=== PATIENT | female | born 1985 | race Hispanic/Latino ===

== ENCOUNTER 2020-05-04 18:11 | Outpatient (CLI) | payer OTHER ==
[2020-05-04 21:20] LABS: Hematocrit 33.4 % (30.3-42.9); Hemoglobin 11.7 gm/dl (10.1-14.3); Mean Corpuscular HGB Conc 35 % (30-34); Mean Corpuscular Volume 88 fl (79-97); Platelet Count 180 K/mm3 (140-440)
[2020-05-04 21:25] LABS: Bacteria,Urine 1+ /HPF (Negative); Bilirubin,Urine NEG (Negative); Blood,Urine NEG (Negative); Color,Urine Straw (Yellow); Mucus,Urine FEW /HPF; Protein,Urine <15 mg/dL mg/dL (Negative); Urobilinogen,Urine < 2.0 mg/dL (<2.0)
[2020-05-04 21:43] LABS: Alanine Aminotransferase 8 units/L (7-56); Uric Acid 3.7 mg/dL (3.5-7.6)
[2020-05-04 21:51] VITALS: BP 132/89
== END 2020-05-04 20:15 | disposition home or self-care (01) ==
LOC: TRG 18:11 → APU 18:11 → TRG 20:15
PROVIDERS: ATTEND Obstetrics & Gynecology
DX: O47.1 False labor at or after 37 completed weeks of gestation (principal); Z3A.37 37 weeks gestation of pregnancy
CPT/HCPCS: 36415; 59025; 81001; 82565; 83615; 84450; 84460; 84550; 85027

== ENCOUNTER 2020-05-27 10:19 | Outpatient (CLI) | payer OTHER ==
[2020-05-27 11:29] VITALS: BP 109/72
== END 2020-05-27 12:00 | disposition home or self-care (01) ==
LOC: TRG 10:19 → APU 10:20 → TRG 12:00
PROVIDERS: ATTEND Obstetrics & Gynecology
DX: O26.893 Other specified pregnancy related conditions, third trimester (principal); R42 Dizziness and giddiness; Z3A.41 41 weeks gestation of pregnancy
CPT/HCPCS: 59025

== ENCOUNTER 2020-05-29 11:49 | Inpatient (IN) | payer OTHER ==
[2020-05-29] MEDS ORDERED: CARBOPROST TROMETHAMINE 250 MCG/1 ML INJ IM PRN (11:57)
[2020-05-29] MEDS ORDERED: LIDOCAINE (2%) 20 MG/1 ML VIAL 20 ML MDV INFILTRATI NR (11:57)
[2020-05-29] MEDS ORDERED: miSOPROStol 200 MCG TAB PR PRN (12:00)
[2020-05-29] MEDS ORDERED: OXYTOCIN 10 UNIT/1 ML INJ IM PRN (12:00)
[2020-05-29] MEDS ORDERED: TERBUTALINE 1 MG/1 ML INJ SUB-Q PRN (12:00)
[2020-05-29] MEDS ORDERED: ONDANSETRON 4 MG/2 ML INJ IV PRN (12:00)
[2020-05-29] MEDS ORDERED: OXYTOCIN DRIP 30 UNITS/500 ML BAG IV SCH (12:00)
[2020-05-29] MEDS ORDERED: OXYTOCIN 20 UNIT/1000ML DRIP 20 UNITS/1,000 ML BAG IV SCH (12:00)
--- NOTE | 2020-05-29 12:23 | History and Physical Report ---
History of Present Illness Date of examination: 05/29/20 (Sent from OB office Nonreactive NST; 40w5d IOL) Date of admission: 05/29/20 11:49 History of present illness: EDC Confirmation: 05/24/2020 Gestational Age: 8 5/7 weeks Past History : 3 Term Births: 2 Premature Births: 0 Living Children: 2 Para: 2 Mult. Births: 0 Prev : 0 Aborta: 0 Elect. Ab: 0 Spont. Ab: 0 Ectopics: 0 # 1 Delivery date: 2008 labor: no Delivery type: Anesthesia type: epidural Delivery location: [place] Infant Sex: Male weight: 6-7 # 2 Delivery date: 2014 labor: no Delivery type: Anesthesia type: epidural Delivery location: [place] Sex: Male weight: 7-6 Past Medical History: Reviewed history and no changes required: Negative Past Medical History Past Surgical History: negative Risk Factors: Smoked Tobacco Use: Never smoker Smokeless Tobacco Use: Never Passive smoke exposure: no Drug use: no HIV high-risk behavior: low risk Caffeine use: 2 drinks per day Alcohol use: no Exercise: no Seatbelt use: preg-day camp counselor % Family History Risk Factors: Family History of IN in females < 65 years old: no Family History of IN in males < 55 years old: no Dietary Counseling: pn yes PAP Smear History: Date of Last PAP Smear: 09/12/2014 Results: normal per pt Past Medical History Anesthesia Complications: negative Anemia: negative Autoimmune Disorder: negative Bleeding Disorder: negative Blood Transfusions: negative Breast Disease: negative Diabetes: negative Heart Disease: negative Hypertension: negative Hepatitis/Liver Disease: negative Kidney Disease/UTI: negative Neurologic/Epilepsy/Migraines: negative Phlebitis/Varicosities: negative Psychiatric: negative Pulmonary Disease/Asthma: negative Thyroid Disease: negative Hospitalizations: negative Surgery (Non-cotton sampler): negative Abnormal PAP: negative LESLYE Exposure: negative Infertility: negative Uterine Anomaly: negative Uterine Surgery (not C/S): negative Other Gynecologic Problems: negative Infection History Hx of STD: none HIV Risk Eval: low risk Hepatitis B Risk Eval: low risk Personal hx. of genital herpes: no Partner hx. of genital herpes: no Rash, Viral, or Febrile illness since last LMP? no Varicella/Chicken Pox Status: Previous Disease TB Risk: no Genetic History Congenital Heart Defect: Mom: no Dad: no Mandy Disease: Mom: no Dad: no Thalassemia Mom: no Dad: no Neural Tube Defect Mom: no Dad: no Down's Syndrome Mom: no Dad: no Roland-Sachs Mom: no Dad: no Sickle Cell Disease/Trait Mom: no Dad: no Hemophilia Mom: no Dad: no Muscular Dystrophy Mom: no Dad: no Cystic Fibrosis Mom: no Dad: no Kathrin Chorea Mom: no Dad: no Mental Retardation Mom: no Dad: yes Comments: Austisim Fragile X Mom: no Dad: no Other Genetic/Chromosomal Disorder Mom: no Dad: no Child w/other defect Mom: no Dad: no Enviromental Exposures Xray Exposure: no Medication, drug, or alcohol use since LMP: no Chemical/Other Exposure: no Exposure to Cat Liter: yes Hx of Parvovirus (Fifth Disease): no Occupational Exposure to Children: none Active Medications: None Current Allergies: No known allergies Past History - Obstetrical History Expected Date of Delivery: 05/24/20 Actual Gestation: 40 Week(s) 5 Day(s) : 3 Para: 2 Hx # Term Pregnancies: 2 Number of Pregnancies: 0 Spontaneous Abortions: 0 Induced : 0 Number of Living Children: 2 Medications and Allergies Allergies Allergy/AdvReac Type Severity Reaction Status Date / Time No Known Allergies Allergy Verified 04/27/20 05:13 Home Medications Medication Instructions Recorded Confirmed Last Taken Type No Known Home Medications [No 05/29/20 05/29/20 Unknown History Reported Home Medications] Active Meds: Active Medications Acetaminophen (Tylenol) 650 mg PO Q4H PRN PRN Reason: Pain, Mild (1-3) Carboprost Tromethamine (Hemabate) 250 mcg IM ONCE PRN PRN Reason: Uterine Bleeding Stop: 05/29/20 23:00 Ephedrine Sulfate (Ephedrine Sulfate) 10 mg IV Q2M PRN PRN Reason: Hypotension Fentanyl (Sublimaze) 100 mcg IV Q2H PRN PRN Reason: Pain,Severe (7-10) LABOR PAIN Oxytocin/Sodium Chloride (Pitocin/Ns 30 Unit/500ml) 30 units in 500 mls @ 4 mls/hr IV TITR ANDERS; Protocol Lactated Ringer's (Lactated Ringers) 1,000 mls @ 125 mls/hr IV DIRECT ANDERS Oxytocin/Sodium Chloride (Pitocin/Ns 20 Unit/1000ml Drip) 20 units in 1,000 mls @ 125 mls/hr IV DIRECT ANDERS Lidocaine (Xylocaine 2%) 20 ml INFILTRATI ONCE NR Stop: 05/29/20 16:00 Methylergonovine Maleate (Methergine) 0.2 mg IM ONCE PRN PRN Reason: Uterine Bleeding Stop: 05/29/20 23:00 Mineral Oil (Mineral Oil) 30 ml PO QHS PRN PRN Reason: Constipation Misoprostol (Cytotec) 800 mcg [place] ONCE PRN PRN Reason: Uterine Bleeding Stop: 05/29/20 23:00 Ondansetron HCl (Zofran) 4 mg IV Q8H PRN PRN Reason: Nausea And Vomiting Oxytocin (Pitocin) 10 unit IM ONCE PRN PRN Reason: Uterine Bleeding Stop: 05/29/20 23:00 Terbutaline Sulfate (Brethine) 0.25 mg SUB-Q ONCE PRN PRN Reason: Hyperstimulation/Hypertonicity Stop: 05/29/20 23:00 - Physical Exam Breasts: Positive: deferred Cardiovascular: Regular rate, Normal S1, Normal S2 Lungs: Positive: Normal air movement Abdomen: Positive: normal appearance, soft, normal bowel sounds. Negative: distention, tenderness Genitourinary (Female): Positive: normal external genitalia Vulva: both: normal Vagina: Positive: normal moisture. Negative: discharge Cervix: Negative: lesion, discharge Uterus: Positive: normal size, normal contour Adnexa: both: normal Anus/Rectum: Positive: normal perianal skin, heme negative. Negative: rectal mass, hemorrhoids Extremities: Positive: edema Deep Tendon Reflex Grade: Normal +2 - Obstetrical FHR: category 1 Uterine Contraction Monitor Mode: External Cervical Dilatation: 1 (vertex) Cervical Effacement Percentage: 30 station: -4 Uterine Contraction Pattern: Irregular Uterine Tone Measurement Phase: Resting Uterine Contraction Intensity: Mild Results Result Diagrams: 05/29/20 12:39 All other labs normal. GBS NEGATIVE HBsAg Screen Negative Negative *1 RPR Non Reactive Non Reactive *2 Rubella Antibodies, IgG 1.15 index Immune >0.99 *3 Non-immune <0.90 Equivocal 0.90 - 0.99 Immune >0.99 ABO Grouping B *4 Rh Factor Positive *5 Please note: Prior records for this patient's ABO / Rh type are not available for additional verification. Antibody Screen Negative Negative *6 WBC 8.7 x10E3/uL 3.4-10.8 *7 RBC 4.56 x10E6/uL 3.77-5.28 *8 Hemoglobin 13.9 g/dL 11.1-15.9 *9 Hematocrit 43.0 % 34.0-46.6 *10 MCV 94 fL 79-97 *11 MCH 30.5 pg 26.6-33.0 *12 MCHC 32.3 g/dL 31.5-35.7 *13 RDW 13.4 % 11.7-15.4 *14 Platelets 225 x10E3/uL 150-450 *15 Neutrophils 71 % Not Estab. *16 Lymphs 19 % Not Estab. *17 Monocytes 5 % Not Estab. *18 Eos 4 % Not Estab. *19 Basos 0 % Not Estab. *20 ! Immature Cells <No Reported Value> *21 Neutrophils (Absolute) 6.2 x10E3/uL 1.4-7.0 *22 Lymphs (Absolute) 1.7 x10E3/uL 0.7-3.1 *23 Monocytes(Absolute) 0.5 x10E3/uL 0.1-0.9 *24 Eos (Absolute) 0.3 x10E3/uL 0.0-0.4 *25 Baso (Absolute) 0.0 x10E3/uL 0.0-0.2 *26 ! Immature Granulocytes 1 % Not Estab. *27 ! Immature Grans (Abs) 0.0 x10E3/uL 0.0-0.1 *28 ! NRBC <No Reported Value> *29 Hematology Comments: <No Reported Value> *30 Tests: (2) Parvovirus B19, Human, IgG/IgM (437273) ! Parvovirus B19, IgG [H] 6.7 index 0.0-0.8 *31 Negative <0.9 Equivocal 0.9 - 1.1 Positive >1.1 ! Parvovirus B19, IgM 0.5 index 0.0-0.8 *32 Negative <0.9 Equivocal 0.9 - 1.1 Positive >1.1 Tests: (3) HB Solu + Rflx Fra ([id number]) Hemoglobin (Hgb) Solubility Negative Negative *33 Tests: (4) HIV Ag/Ab with Reflex ([id number]) HIV Screen 4th Generation wRfx Non Reactive Non Reactive *34 Tests: (5) HCV Ab w/Rflx to Verification ([id number]) ! HCV Ab <0.1 s/co ratio 0.0-0.9 *35 Tests: (6) Comment: ([id number]) ! Comment: SPRCS *36 Non reactive HCV antibody screen is consistent with no HCV infection, unless recent infection is suspected or other evidence exists to indicate HCV infection. Assessment and Plan 34yo @ 40w5d with nonreactive NST in office. Sent for IOL All orders in EMR GBS Negative - Patient Problems (1) Non-reassuring status Onset Date: ~05/29/20 Current Visit: Yes Status: Acute Plan to address problem: Nonreactive NST in office @ 40w5d Sent for IOL. Close monitoring of baby.
[2020-05-29] MEDS ORDERED: METHYLERGONOVINE MALEATE 0.2 MG/ML VIAL IM PRN (12:30)
[2020-05-29] MEDS ORDERED: ACETAMINOPHEN 325 MG TAB PO PRN (13:00)
[2020-05-29] MEDS ORDERED: fentaNYL 100 MCG/2 ML INJ IV PRN (13:00)
[2020-05-29 13:15] LABS: Hematocrit 35.4 % (30.3-42.9); Hemoglobin 12.2 gm/dl (10.1-14.3); Mean Corpuscular HGB Conc 35 % (30-34); Mean Corpuscular Volume 88 fl (79-97); Platelet Count 185 K/mm3 (140-440); Red Blood Count 4.04 M/mm3 (3.65-5.03); Red Cell Distribution Width 13.5 % (13.2-15.2)
[2020-05-29] MEDS ORDERED: DINOPROSTONE 10 MG VAG SUPP VG ONE (14:57)
[2020-05-29] MEDS: LACTATED RINGERS 1,000 ML IV SCH (16:27)
[2020-05-29] MEDS: FAMOTIDINE 20 MG/2 ML INJ IV SCH (18:18)
[2020-05-29] MEDS: ZOLPIDEM 5 MG TAB PO PRN (21:21)
[2020-05-29] MEDS ORDERED: MINERAL OIL 30 ML ORAL LIQD PO PRN (22:00)
[2020-05-30] MEDS: LACTATED RINGERS 1,000 ML IV SCH ×2 (00:18→09:30)
--- NOTE | 2020-05-30 07:44 | Progress Note ---
Assessment and Plan A: 34 y.o. @ 40.6 wks, IOL d/t non reactive NST in office. Cervidil removed @ 0500. Cervical exam 1.4. Category 1 strip at this time. P: Allow AM care: breakfast, shower. Start Pitocin after AM care. Subjective - Subjective Date of service: 05/30/20 (Pt doing well. ) Principal diagnosis: Postdates 40.6 wks IUP, IOL d/t non reassuring heart rate on office NST Objective - Vital Signs Vital Signs: Vital Signs - 12hr 05/29/20 05/29/20 05/29/20 19:41 19:46 19:51 Temperature Pulse Rate 82 76 73 Respiratory Rate Blood Pressure Blood Pressure [Right] O2 Sat by Pulse 99 100 99 Oximetry 05/29/20 05/29/20 05/29/20 19:53 19:56 19:59 Temperature 987.7 F H Pulse Rate 74 77 73 Respiratory 18 Rate Blood Pressure 117/76 Blood Pressure 131/85 [Right] O2 Sat by Pulse 99 Oximetry 05/29/20 05/29/20 05/29/20 20:01 20:06 20:11 Temperature Pulse Rate 73 86 79 Respiratory Rate Blood Pressure Blood Pressure [Right] O2 Sat by Pulse 99 99 99 Oximetry 05/29/20 05/29/20 05/29/20 20:16 20:21 20:26 Temperature Pulse Rate 89 74 82 Respiratory Rate Blood Pressure Blood Pressure [Right] O2 Sat by Pulse 99 99 100 Oximetry 05/29/20 05/29/20 05/29/20 20:31 20:36 20:41 Temperature Pulse Rate 67 65 67 Respiratory Rate Blood Pressure Blood Pressure [Right] O2 Sat by Pulse 98 100 99 Oximetry 05/29/20 05/29/20 05/29/20 20:46 20:51 20:56 Temperature Pulse Rate 66 71 71 Respiratory Rate Blood Pressure Blood Pressure [Right] O2 Sat by Pulse 100 100 100 Oximetry 05/29/20 05/29/20 05/29/20 21:01 21:06 21:11 Temperature Pulse Rate 71 80 73 Respiratory Rate Blood Pressure Blood Pressure [Right] O2 Sat by Pulse 100 100 100 Oximetry 05/29/20 05/29/20 05/29/20 21:16 21:21 21:26 Temperature Pulse Rate 69 71 67 Respiratory Rate Blood Pressure Blood Pressure [Right] O2 Sat by Pulse 99 99 100 Oximetry 05/29/20 05/29/20 05/29/20 21:31 21:36 21:41 Temperature Pulse Rate 75 79 69 Respiratory Rate Blood Pressure Blood Pressure [Right] O2 Sat by Pulse 100 100 99 Oximetry 05/29/20 05/29/20 05/29/20 21:46 21:51 21:56 Temperature Pulse Rate 66 65 66 Respiratory Rate Blood Pressure Blood Pressure [Right] O2 Sat by Pulse 99 99 100 Oximetry 05/29/20 05/29/20 05/29/20 22:01 22:06 22:11 Temperature Pulse Rate 71 74 75 Respiratory Rate Blood Pressure Blood Pressure [Right] O2 Sat by Pulse 99 98 98 Oximetry 05/29/20 05/29/20 05/29/20 22:16 22:21 22:26 Temperature Pulse Rate 76 99 H 80 Respiratory Rate Blood Pressure Blood Pressure [Right] O2 Sat by Pulse 98 99 98 Oximetry 05/29/20 05/29/20 05/29/20 22:31 22:36 22:41 Temperature Pulse Rate 65 70 65 Respiratory Rate Blood Pressure Blood Pressure [Right] O2 Sat by Pulse 100 98 99 Oximetry 05/29/20 05/29/20 05/29/20 22:46 22:51 22:56 Temperature Pulse Rate 68 69 66 Respiratory Rate Blood Pressure Blood Pressure [Right] O2 Sat by Pulse 99 98 98 Oximetry 05/29/20 05/29/20 05/29/20 23:01 23:06 23:11 Temperature Pulse Rate 64 73 65 Respiratory Rate Blood Pressure Blood Pressure [Right] O2 Sat by Pulse 98 99 99 Oximetry 05/29/20 05/29/20 05/29/20 23:16 23:21 23:26 Temperature Pulse Rate 68 69 68 Respiratory Rate Blood Pressure Blood Pressure [Right] O2 Sat by Pulse 100 99 99 Oximetry 05/29/20 05/29/20 05/29/20 23:31 23:36 23:41 Temperature Pulse Rate 91 H 65 73 Respiratory Rate Blood Pressure Blood Pressure [Right] O2 Sat by Pulse 100 99 99 Oximetry 05/29/20 05/29/20 05/29/20 23:46 23:51 23:56 Temperature Pulse Rate 80 79 68 Respiratory Rate Blood Pressure Blood Pressure [Right] O2 Sat by Pulse 99 100 100 Oximetry 05/30/20 05/30/20 05/30/20 00:01 00:20 00:25 Temperature Pulse Rate 74 70 73 Respiratory Rate Blood Pressure Blood Pressure [Right] O2 Sat by Pulse 100 100 100 Oximetry 05/30/20 05/30/20 05/30/20 00:30 00:35 00:40 Temperature Pulse Rate 65 69 65 Respiratory Rate Blood Pressure Blood Pressure [Right] O2 Sat by Pulse 100 99 99 Oximetry 05/30/20 05/30/20 05/30/20 00:45 00:50 00:55 Temperature Pulse Rate 65 67 70 Respiratory Rate Blood Pressure Blood Pressure [Right] O2 Sat by Pulse 99 99 99 Oximetry 05/30/20 05/30/20 05/30/20 01:00 01:05 01:10 Temperature Pulse Rate 66 72 69 Respiratory Rate Blood Pressure Blood Pressure [Right] O2 Sat by Pulse 99 98 98 Oximetry 05/30/20 05/30/20 05/30/20 01:15 01:20 01:25 Temperature Pulse Rate 81 77 70 Respiratory Rate Blood Pressure Blood Pressure [Right] O2 Sat by Pulse 99 98 98 Oximetry 05/30/20 05/30/20 05/30/20 01:30 01:35 01:40 Temperature Pulse Rate 87 65 78 Respiratory Rate Blood Pressure Blood Pressure [Right] O2 Sat by Pulse 98 99 98 Oximetry 05/30/20 05/30/20 05/30/20 01:45 01:50 01:55 Temperature Pulse Rate 69 69 74 Respiratory Rate Blood Pressure Blood Pressure [Right] O2 Sat by Pulse 98 98 100 Oximetry 05/30/20 05/30/20 05/30/20 02:00 02:05 02:10 Temperature Pulse Rate 74 79 82 Respiratory Rate Blood Pressure Blood Pressure [Right] O2 Sat by Pulse 100 100 100 Oximetry 05/30/20 05/30/20 05/30/20 02:15 02:20 02:25 Temperature Pulse Rate 67 79 64 Respiratory Rate Blood Pressure Blood Pressure [Right] O2 Sat by Pulse 97 99 100 Oximetry 05/30/20 05/30/20 05/30/20 02:30 02:35 02:40 Temperature Pulse Rate 65 63 63 Respiratory Rate Blood Pressure Blood Pressure [Right] O2 Sat by Pulse 100 100 98 Oximetry 05/30/20 05/30/20 05/30/20 02:45 02:50 02:55 Temperature Pulse Rate 74 69 65 Respiratory Rate Blood Pressure Blood Pressure [Right] O2 Sat by Pulse 98 99 99 Oximetry 05/30/20 05/30/20 05/30/20 03:00 03:05 03:10 Temperature Pulse Rate 64 67 71 Respiratory Rate Blood Pressure Blood Pressure [Right] O2 Sat by Pulse 100 99 100 Oximetry 05/30/20 05/30/20 05/30/20 03:15 03:20 03:25 Temperature Pulse Rate 68 67 70 Respiratory Rate Blood Pressure Blood Pressure [Right] O2 Sat by Pulse 99 99 99 Oximetry 05/30/20 05/30/20 05/30/20 03:30 03:35 03:40 Temperature Pulse Rate 66 69 82 Respiratory Rate Blood Pressure Blood Pressure [Right] O2 Sat by Pulse 99 100 100 Oximetry 05/30/20 05/30/20 05/30/20 03:45 03:50 03:55 Temperature Pulse Rate 65 71 70 Respiratory Rate Blood Pressure Blood Pressure [Right] O2 Sat by Pulse 99 100 100 Oximetry 05/30/20 05/30/20 05/30/20 04:00 04:05 04:10 Temperature Pulse Rate 66 71 100 H Respiratory Rate Blood Pressure Blood Pressure [Right] O2 Sat by Pulse 100 100 100 Oximetry 05/30/20 05/30/20 05/30/20 04:15 04:20 04:35 Temperature Pulse Rate 74 75 89 Respiratory Rate Blood Pressure Blood Pressure [Right] O2 Sat by Pulse 100 100 100 Oximetry 05/30/20 05/30/20 05/30/20 04:40 04:45 04:50 Temperature Pulse Rate 67 78 77 Respiratory Rate Blood Pressure Blood Pressure [Right] O2 Sat by Pulse 99 99 100 Oximetry 05/30/20 05/30/20 05/30/20 04:55 05:00 05:05 Temperature Pulse Rate 68 66 67 Respiratory Rate Blood Pressure Blood Pressure [Right] O2 Sat by Pulse 99 99 100 Oximetry 05/30/20 05/30/20 05/30/20 05:10 05:15 05:20 Temperature Pulse Rate 65 66 70 Respiratory Rate Blood Pressure Blood Pressure [Right] O2 Sat by Pulse 100 99 99 Oximetry 05/30/20 05/30/20 05/30/20 05:25 05:30 05:35 Temperature Pulse Rate 77 68 70 Respiratory Rate Blood Pressure Blood Pressure [Right] O2 Sat by Pulse 100 99 99 Oximetry 05/30/20 05/30/20 05/30/20 05:40 05:45 05:50 Temperature Pulse Rate 69 68 67 Respiratory Rate Blood Pressure Blood Pressure [Right] O2 Sat by Pulse 99 99 99 Oximetry 05/30/20 05/30/20 05/30/20 05:55 06:00 06:05 Temperature Pulse Rate 63 63 69 Respiratory Rate Blood Pressure Blood Pressure [Right] O2 Sat by Pulse 100 100 100 Oximetry 05/30/20 05/30/20 05/30/20 06:10 06:15 06:20 Temperature Pulse Rate 66 63 65 Respiratory Rate Blood Pressure Blood Pressure [Right] O2 Sat by Pulse 99 99 99 Oximetry 05/30/20 05/30/20 05/30/20 06:25 06:30 06:35 Temperature Pulse Rate 63 65 64 Respiratory Rate Blood Pressure Blood Pressure [Right] O2 Sat by Pulse 99 99 99 Oximetry 05/30/20 05/30/20 05/30/20 06:40 06:45 06:57 Temperature Pulse Rate 66 90 80 Respiratory Rate Blood Pressure Blood Pressure [Right] O2 Sat by Pulse 99 98 100 Oximetry 05/30/20 05/30/20 05/30/20 07:02 07:07 07:12 Temperature Pulse Rate 77 71 58 L Respiratory Rate Blood Pressure Blood Pressure [Right] O2 Sat by Pulse 100 100 99 Oximetry 05/30/20 05/30/20 07:17 07:22 Temperature Pulse Rate 74 71 Respiratory Rate Blood Pressure Blood Pressure [Right] O2 Sat by Pulse 100 100 Oximetry - Exam Breasts: deferred Cardiovascular: Regular rate Lungs: Normal air movement Abdomen: Present: normal appearance, soft Vulva: both: normal Uterus: Present: normal Uterine Contraction Monitor Mode: External Cervical Dilatation: 1.5 Cervical Effacement Percentage: 30 station: -4 Uterine Contraction Pattern: Absent Extremities: normal Deep Tendon Reflex Grade: Normal +2 - Labs Labs: Abnormal Labs 05/29/20 12:39 MCHC 35 H Laboratory Results - last 24 hr 05/29/20 05/29/20 05/29/20 12:39 12:39 12:39 WBC 10.3 RBC 4.04 Hgb 12.2 Hct 35.4 MCV 88 MCH 30 MCHC 35 H RDW 13.5 Plt Count 185 Syphilis IgG Antibody Nonreactive Blood Type B POSITIVE Antibody Screen Negative
--- NOTE | 2020-05-30 18:08 | Progress Note ---
Assessment and Plan A: 34 y.o. @ 40.6 wks with c/o vaginal bleeding and feeling ctx pain. Cervical exam 1.5/40/-4. Category 1 tracing at the time of this note. P: Allow patient to eat dinner. Stop Pitocin and will insert cervidil for the night. Continue to monitor maternal and status. Subjective - Subjective Date of service: 05/30/20 (Pt with some complaints of vaginal bleeding.) Principal diagnosis: Postdates 40.6 wks IUP, IOL d/t non reassuring heart rate on office NST Patient reports: new complaints, vaginal bleeding Objective - Vital Signs Vital Signs: Vital Signs - 12hr 05/30/20 05/30/20 05/30/20 06:05 06:10 06:15 Temperature Pulse Rate 69 66 63 Respiratory Rate Blood Pressure Blood Pressure [Right] O2 Sat by Pulse 100 99 99 Oximetry 05/30/20 05/30/20 05/30/20 06:20 06:25 06:30 Temperature Pulse Rate 65 63 65 Respiratory Rate Blood Pressure Blood Pressure [Right] O2 Sat by Pulse 99 99 99 Oximetry 05/30/20 05/30/20 05/30/20 06:35 06:40 06:45 Temperature Pulse Rate 64 66 90 Respiratory Rate Blood Pressure Blood Pressure [Right] O2 Sat by Pulse 99 99 98 Oximetry 05/30/20 05/30/20 05/30/20 06:57 07:02 07:07 Temperature Pulse Rate 80 77 71 Respiratory Rate Blood Pressure Blood Pressure [Right] O2 Sat by Pulse 100 100 100 Oximetry 05/30/20 05/30/20 05/30/20 07:12 07:17 07:22 Temperature Pulse Rate 58 L 74 71 Respiratory Rate Blood Pressure Blood Pressure [Right] O2 Sat by Pulse 99 100 100 Oximetry 05/30/20 05/30/20 05/30/20 08:50 08:56 09:01 Temperature Pulse Rate 106 H 83 97 H Respiratory Rate Blood Pressure Blood Pressure [Right] O2 Sat by Pulse 85 98 99 Oximetry 05/30/20 05/30/20 05/30/20 09:06 09:11 09:15 Temperature 98.3 F Pulse Rate 81 90 101 H Respiratory 16 Rate Blood Pressure Blood Pressure 005/77 [Right] O2 Sat by Pulse 98 99 98 Oximetry 05/30/20 05/30/20 05/30/20 09:16 09:21 09:26 Temperature Pulse Rate 106 H 90 87 Respiratory Rate Blood Pressure Blood Pressure [Right] O2 Sat by Pulse 98 99 99 Oximetry 05/30/20 05/30/20 05/30/20 09:27 09:31 09:36 Temperature Pulse Rate 88 76 90 Respiratory Rate Blood Pressure 115/77 Blood Pressure [Right] O2 Sat by Pulse 98 99 Oximetry 05/30/20 05/30/20 05/30/20 09:41 09:46 09:51 Temperature Pulse Rate 96 H 77 82 Respiratory Rate Blood Pressure Blood Pressure [Right] O2 Sat by Pulse 100 99 98 Oximetry 05/30/20 05/30/20 05/30/20 09:56 10:01 10:06 Temperature Pulse Rate 87 84 93 H Respiratory Rate Blood Pressure Blood Pressure [Right] O2 Sat by Pulse 99 99 98 Oximetry 05/30/20 05/30/20 05/30/20 10:11 10:16 10:21 Temperature Pulse Rate 77 75 84 Respiratory Rate Blood Pressure Blood Pressure [Right] O2 Sat by Pulse 98 99 99 Oximetry 05/30/20 05/30/20 05/30/20 10:26 10:31 10:36 Temperature Pulse Rate 86 92 H 76 Respiratory Rate Blood Pressure Blood Pressure [Right] O2 Sat by Pulse 99 99 99 Oximetry 05/30/20 05/30/20 05/30/20 10:41 10:46 10:51 Temperature Pulse Rate 78 76 86 Respiratory Rate Blood Pressure Blood Pressure [Right] O2 Sat by Pulse 99 99 98 Oximetry 05/30/20 05/30/20 05/30/20 10:56 11:01 11:06 Temperature Pulse Rate 73 83 86 Respiratory Rate Blood Pressure Blood Pressure [Right] O2 Sat by Pulse 99 100 99 Oximetry 05/30/20 05/30/20 05/30/20 11:11 11:16 11:21 Temperature Pulse Rate 83 69 76 Respiratory Rate Blood Pressure Blood Pressure [Right] O2 Sat by Pulse 99 99 99 Oximetry 05/30/20 05/30/20 05/30/20 11:26 11:31 11:36 Temperature Pulse Rate 78 79 84 Respiratory Rate Blood Pressure Blood Pressure [Right] O2 Sat by Pulse 99 99 99 Oximetry 05/30/20 05/30/20 05/30/20 11:41 11:46 11:51 Temperature Pulse Rate 78 89 78 Respiratory Rate Blood Pressure Blood Pressure [Right] O2 Sat by Pulse 99 99 98 Oximetry 05/30/20 05/30/20 05/30/20 11:56 12:01 12:06 Temperature Pulse Rate 83 78 83 Respiratory Rate Blood Pressure Blood Pressure [Right] O2 Sat by Pulse 98 99 99 Oximetry 05/30/20 05/30/20 05/30/20 12:11 12:16 12:21 Temperature Pulse Rate 79 74 68 Respiratory Rate Blood Pressure Blood Pressure [Right] O2 Sat by Pulse 99 98 98 Oximetry 05/30/20 05/30/20 05/30/20 12:26 12:31 12:36 Temperature Pulse Rate 80 77 78 Respiratory Rate Blood Pressure Blood Pressure [Right] O2 Sat by Pulse 98 99 98 Oximetry 05/30/20 05/30/20 05/30/20 12:43 12:48 12:53 Temperature Pulse Rate 90 69 74 Respiratory Rate Blood Pressure Blood Pressure [Right] O2 Sat by Pulse 99 99 100 Oximetry 05/30/20 05/30/20 05/30/20 12:58 13:03 13:08 Temperature Pulse Rate 62 66 61 Respiratory Rate Blood Pressure Blood Pressure [Right] O2 Sat by Pulse 100 98 99 Oximetry 05/30/20 05/30/20 05/30/20 13:13 13:18 13:23 Temperature Pulse Rate 66 63 70 Respiratory Rate Blood Pressure Blood Pressure [Right] O2 Sat by Pulse 99 98 98 Oximetry 05/30/20 05/30/20 05/30/20 13:28 13:33 13:38 Temperature Pulse Rate 75 66 67 Respiratory Rate Blood Pressure Blood Pressure [Right] O2 Sat by Pulse 99 99 99 Oximetry 05/30/20 05/30/20 05/30/20 13:43 13:48 13:53 Temperature Pulse Rate 84 64 75 Respiratory Rate Blood Pressure Blood Pressure [Right] O2 Sat by Pulse 98 95 99 Oximetry 05/30/20 05/30/20 05/30/20 13:58 14:03 14:08 Temperature Pulse Rate 72 68 73 Respiratory Rate Blood Pressure Blood Pressure [Right] O2 Sat by Pulse 99 99 99 Oximetry 05/30/20 05/30/20 05/30/20 14:13 14:18 14:23 Temperature Pulse Rate 64 69 71 Respiratory Rate Blood Pressure Blood Pressure [Right] O2 Sat by Pulse 99 99 100 Oximetry 05/30/20 05/30/20 05/30/20 14:28 14:33 14:34 Temperature Pulse Rate 68 76 Respiratory Rate Blood Pressure Blood Pressure [Right] O2 Sat by Pulse 97 100 89 Oximetry 05/30/20 05/30/20 05/30/20 14:38 14:43 14:48 Temperature Pulse Rate 60 64 62 Respiratory Rate Blood Pressure Blood Pressure [Right] O2 Sat by Pulse 98 100 99 Oximetry 05/30/20 05/30/20 05/30/20 14:53 14:58 15:03 Temperature Pulse Rate 64 61 59 L Respiratory Rate Blood Pressure Blood Pressure [Right] O2 Sat by Pulse 100 100 100 Oximetry 05/30/20 05/30/20 05/30/20 15:08 15:13 15:18 Temperature Pulse Rate 63 67 69 Respiratory Rate Blood Pressure Blood Pressure [Right] O2 Sat by Pulse 99 100 99 Oximetry 05/30/20 05/30/20 05/30/20 15:23 15:28 15:33 Temperature Pulse Rate 64 65 63 Respiratory Rate Blood Pressure Blood Pressure [Right] O2 Sat by Pulse 100 100 100 Oximetry 05/30/20 05/30/20 05/30/20 15:38 15:42 15:43 Temperature Pulse Rate 66 75 65 Respiratory Rate Blood Pressure Blood Pressure [Right] O2 Sat by Pulse 100 91 100 Oximetry 05/30/20 05/30/20 05/30/20 15:48 15:53 15:58 Temperature Pulse Rate 65 69 67 Respiratory Rate Blood Pressure Blood Pressure [Right] O2 Sat by Pulse 100 100 100 Oximetry 05/30/20 05/30/20 05/30/20 16:03 16:09 16:14 Temperature Pulse Rate 71 82 69 Respiratory Rate Blood Pressure Blood Pressure [Right] O2 Sat by Pulse 99 88 100 Oximetry 05/30/20 05/30/20 05/30/20 16:19 16:20 16:24 Temperature Pulse Rate 75 74 77 Respiratory Rate Blood Pressure Blood Pressure [Right] O2 Sat by Pulse 100 89 89 Oximetry 05/30/20 05/30/20 05/30/20 16:26 16:29 16:33 Temperature Pulse Rate 78 70 70 Respiratory Rate Blood Pressure Blood Pressure [Right] O2 Sat by Pulse 91 100 94 Oximetry 05/30/20 05/30/20 05/30/20 16:34 16:39 16:44 Temperature Pulse Rate 64 85 77 Respiratory Rate Blood Pressure Blood Pressure [Right] O2 Sat by Pulse 99 100 100 Oximetry 05/30/20 05/30/20 05/30/20 16:49 16:54 16:59 Temperature Pulse Rate 72 79 70 Respiratory Rate Blood Pressure Blood Pressure [Right] O2 Sat by Pulse 99 100 100 Oximetry 05/30/20 05/30/20 05/30/20 17:04 17:09 17:14 Temperature Pulse Rate 72 77 71 Respiratory Rate Blood Pressure Blood Pressure [Right] O2 Sat by Pulse 100 100 99 Oximetry 05/30/20 05/30/20 05/30/20 17:19 17:24 17:29 Temperature Pulse Rate 74 72 69 Respiratory Rate Blood Pressure Blood Pressure [Right] O2 Sat by Pulse 100 99 100 Oximetry 05/30/20 05/30/20 05/30/20 17:34 17:39 17:44 Temperature Pulse Rate 74 71 76 Respiratory Rate Blood Pressure Blood Pressure [Right] O2 Sat by Pulse 100 97 100 Oximetry 05/30/20 17:49 Temperature Pulse Rate 72 Respiratory Rate Blood Pressure Blood Pressure [Right] O2 Sat by Pulse 100 Oximetry - Exam Narrative Exam: Explained the plan of care for the patient for the night. That we will allow her to eat and shower again and then insert another cervidil for the night. Pt has some anxiety regarding this . " I was induced the last time and it happened quicker than this. This baby feels bigger". Explained to patient that every and labor is different and that when we are inducing, it may take up to 3 days to really get her into labor. Pt voiced understanding and was calmer after explanation. Breasts: deferred Cardiovascular: Regular rate Lungs: Normal air movement Abdomen: Present: normal appearance, soft Vulva: both: normal Uterus: Present: normal FHR: category 1 Uterine Contraction Monitor Mode: External Cervical Dilatation: 1.5 (Some vaginal bleeding noted.) Cervical Effacement Percentage: 40 station: -4 Uterine Contraction Pattern: Irregular Uterine Tone Measurement Phase: Resting Uterine Contraction Intensity: Moderate Extremities: normal Deep Tendon Reflex Grade: Normal +2 - Labs Labs: Abnormal Labs 05/29/20 12:39 MCHC 35 H Laboratory Results - last 24 hr 05/29/20 Unknown Coronavirus (PCR) Negative
[2020-05-30] MEDS ORDERED: DINOPROSTONE 10 MG VAG SUPP VG ONE (19:18)
[2020-05-30] MEDS: FAMOTIDINE 20 MG/2 ML INJ IV SCH (23:21)
--- NOTE | 2020-05-30 23:36 | Event Note ---
Date: 05/30/20 (Cervidil placed) Pt with unchanged cervix @ 1.5/-4. Cervidil placed without difficulty @ 0603.
[2020-05-31] MEDS: ZOLPIDEM 5 MG TAB PO PRN (00:17)
[2020-05-31] MEDS ORDERED: DEXMEDETOMIDINE 200 MCG/2 ML VIAL IV ONE (03:12)
[2020-05-31] MEDS ORDERED: ePHEDrine SULFATE 50 MG/1 ML INJ IV PRN (03:43)
[2020-05-31] MEDS ORDERED: NALOXONE 2 MG/2 ML INJ IV PRN (03:43)
--- NOTE | 2020-05-31 03:45 | Anesthesia Consultation ---
Anesthesia Consult and Med Hx Date of service: 05/31/20 - Airway Anesthetic Teeth Evaluation: Poor ROM Head & Neck: Adequate Mental/Hyoid Distance: Adequate Mallampati Class: Class III Intubation Access Assessment: Probably Good - Pulmonary Exam CTA: Yes - Cardiac Exam Cardiac Exam: RRR - Pre-Operative Health Status ASA Pre-Surgery Classification: ASA3 Proposed Anesthetic Plan: Epidural - Pulmonary Hx Smoking: Yes (stoped during ) Hx Asthma: No Hx Respiratory Symptoms: No SOB: Yes COPD: No Home Oxygen Therapy: No Hx Pneumonia: No Hx Sleep Apnea: No - Cardiovascular System Hx Hypertension: No Hx Coronary Artery Disease: No Hx Heart Attack/AMI: No Hx Angina: No Hx Percutaneous Transluminal Coronary Angioplasty (PTCA): No Hx Cardia Arrhythmia: No Hx Pacemaker: No Hx Internal Defibrillator: No Hx Valvular Heart Disease: No Hx Heart Murmur: No Hx Peripheral Vascular Disease: No - Central Nervous System Hx Neuromuscular Disorder: No Hx Seizures: No CVA: No Hx Back Pain: Yes (Siatic nerve pain, back and right leg) Hx Psychiatric Problems: No - Gastrointestinal Hx Ulcer: No Hx Gastroesophageal Reflux Disease: Yes - Endocrine Hx Renal Disease: No Hx End Stage Renal Disease: No Hx Cirrhosis: No Hx Liver Disease: No Hx Insulin Dependent Diabetes: No Hx Non-Insulin Dependent Diabetes: No Hx Thyroid Disease: No Hx Hypothyroidism: No Hx Hyperthyroidism: No - Hematic Hx Anemia: No Hx Sickle Cell Disease: No - Other Systems Hx Alcohol Use: Yes (occas social) Hx Substance Use: No Hx Cancer: No Hx Obesity: Yes
[2020-05-31] MEDS ORDERED: fentaNYL-BUPIV 2 MCG/ML-0.125% 200 MCG/100 ML BAG EPIDURAL SCH (04:00)
[2020-05-31] MEDS: ePHEDrine SULFATE 50 MG/1 ML INJ IV PRN ×2 (04:00→04:15)
--- NOTE | 2020-05-31 05:23 | Procedure Note ---
OB Delivery Note - [employer] Supervisor: JACINTO BRIGGS Estimated blood loss: 200cc - Vaginal Delivery presentation: vertex Delivery position: OA Intrapartum events: meconium, mult.variable deceleratio Delivery induction: cervidil Delivery augmentation: rupture of membranes, pitocin Delivery monitor: external FHT, external uterine Route of delivery: Delivery placenta: spontaneous Delivery cord: 3 umbilical vessels Episiotomy: none Delivery laceration: none Anesthesia: epidural Delivery comments: AROM at delivery, meconium stained fluid. 06/21/+2. of male infant, cord around neck and shoulders, easily reduced. to mother's chest for skin to skin. Cord cut and clamped and infant handed to [facility] for evaluation. Spontaneous delivery of placenta, intact, 3 vessels noted, complete. Vagina and perineum inspected, no lacerations noted. Apgars 8.9. Weight 7-7. EBL 200ml. Sponges and instruments counted with RN and correct X 2. - Infant A at 1 minute: 8 at 5 minutes: 9 Infant Gender: Male
[2020-05-31] MEDS ORDERED: BENZOCAINE/MENTHOL 20/0.5% TOP SPRAY 56 GM TP PRN (05:24)
[2020-05-31] MEDS ORDERED: diphenhydrAMINE 25 MG CAP PO PRN (05:24)
[2020-05-31] MEDS ORDERED: LANOLIN/ZINC/DIMETHICONE (LANSINOH) 7 GM TP PRN (05:24)
[2020-05-31] MEDS ORDERED: MAGNESIUM HYDROXIDE (MOM) ORAL LIQD UDC PO PRN (05:24)
[2020-05-31] MEDS ORDERED: PROMETHAZINE 25 MG TAB PO PRN (05:24)
[2020-05-31] MEDS ORDERED: ONDANSETRON 4 MG/2 ML INJ IV PRN (05:24)
[2020-05-31] MEDS ORDERED: WITCH HAZEL/ GLYCERIN PAD TP PRN (05:24)
[2020-05-31] MEDS ORDERED: PROMETHAZINE 25 MG RECT SUPP PR PRN (05:24)
[2020-05-31] MEDS ORDERED: OXYTOCIN 20 UNIT/1000ML DRIP 20 UNITS/1,000 ML BAG IV SCH (06:00)
[2020-05-31] MEDS ORDERED: ACETAMINOPHEN 500 MG TAB PO PRN (06:30)
--- NOTE | 2020-05-31 07:24 | Post Anesthesia Evaluation ---
- Post Anesthesia Evaluation Patient Participated: Yes Airway Patent: Yes Stable Respiratory Function: Yes Nausea/Vomiting: No Temp > 96.8F: Yes Pain Manageable: Yes Adequeate Hydration: Yes Anesthesia Complications: No Block Receding Appropriately: Yes Patient on Ventilator: No
[2020-05-31] MEDS: IBUPROFEN 800 MG TAB PO SCH ×3 (10:36→22:00)
[2020-05-31] MEDS: PRENATAL VIT27-FE FUMARATE-FOLIC ACID VIT TAB PO SCH (10:37)
[2020-05-31] MEDS: DOCUSATE SODIUM 100 MG CAP PO SCH ×2 (10:37→22:07)
[2020-05-31 20:26] LABS: Hematocrit 32.9 % (30.3-42.9); Hemoglobin 11.2 gm/dl (10.1-14.3)
[2020-06-01] MEDS: IBUPROFEN 800 MG TAB PO SCH ×2 (05:10→14:03)
[2020-06-01] MEDS ORDERED: DIPHtheria,PERTUSSIS(ACELL),TETANUS VACCINE/PF 0.5 ML VIAL IM ONE (06:00)
--- NOTE | 2020-06-01 09:22 | Discharge Summary ---
Providers - Providers Date of Admission: 05/29/20 11:49 Date of discharge: 06/01/20 (pt desires to go home NB tsting to be done prior to D/c.) Attending physician: MARIO WOODWARD Primary care physician: JUAN BOWEN Hospitalization Reason for admission: induction of labor (41 weeks), IUP at term Delivery: Episiotomy: none Laceration: none Other procedures: none complications: none Discharge diagnosis: IUP at term delivered [place] baby: male Hospital course: Uncomplicated vaginal delivery patient alert and oriented with stable vitals. Abdomen soft and nontender, Fundus firm and 1 below umbilicus. Perineum intact, Small lochia. Breasts soft. +1 Pedal edema. Normal air movement. H/H stable no signs and symptoms of anemia. Plan to d/c home with prescriptions and plan to follow up in office Condition at discharge: Good Disposition: DC-01 TO HOME OR SELFCARE - Discharge Diagnoses (1) Spontaneous vaginal delivery Status: Acute Comment: RTO 4 weeks Plan - Discharge Medications Prescriptions: Lidocain2.5%/Prilocai2.5% [Emla] 1 applic TP ONCE #1 tube Ibuprofen [Motrin] 800 mg PO Q8HR PRN #30 tablet PRN Reason: Pain, Moderate (4-6) - Provider Discharge Summary Activity: routine, no sex for 6 weeks, no heavy lifting 4 weeks, no strenuous exercise Diet: routine Instructions: routine Additional instructions: [] Smoking cessation referral if applicable(refer to patient education folder for contact #) [] Refer to [facility] Booklet Call your doctor immediately for: * Fever > 100.5 * Heavy vaginal bleeding ( >1 pad per hour) * Severe persistent headache * Shortness of breath * Reddened, hot, painful area to leg or breast * Drainage or odor from incision. * Keep incision clean and dry at all times and follow doctor's instructions regarding bathing/showering - Follow up plan Follow up: JUAN BOWEN MD [Primary Care Provider] - 7 Days (Congratulations! Please call [phone] to schedule your visit in 4 weeks and your son's circumcision in 1 week. Bring the CATIE hansen to his appointment. Do not use at home. Take medications as prescribed. Call with any concerns.)
[2020-06-01] MEDS: DOCUSATE SODIUM 100 MG CAP PO SCH (09:28)
[2020-06-01] MEDS: PRENATAL VIT27-FE FUMARATE-FOLIC ACID VIT TAB PO SCH (09:28)
[2020-06-01] MEDS ORDERED: medroxyPROGESTERone ACETATE 150 MG/ML SYRINGE IM ONE ×2 (11:00→14:00)
[2020-06-01 13:58] VITALS: BP 123/53
== END 2020-06-01 14:20 | disposition home or self-care (01) | DRG 775 ==
LOC: LD 11:49 → OB 05-31 08:02
PROVIDERS: ADMIT Obstetrics & Gynecology; ATTEND Obstetrics & Gynecology
PROC: 3E0P7VZ Introduction of Hormone into Female Reproductive, Via Natural or Artificial Opening (ICD-10-PCS; 2020-05-30)
PROC: 10E0XZZ Delivery of Products of Conception, External Approach (ICD-10-PCS; 2020-05-31)
PROC: 3E0R3BZ Introduction of Anesthetic Agent into Spinal Canal, Percutaneous Approach (ICD-10-PCS; 2020-05-31)
PROC: 00HU33Z Insertion of Infusion Device into Spinal Canal, Percutaneous Approach (ICD-10-PCS; 2020-05-31)
PROC: 10907ZC Drainage of Amniotic Fluid, Therapeutic from Products of Conception, Via Natural or Artificial Opening (ICD-10-PCS; 2020-05-31)
PROC: 3E0234Z Introduction of Serum, Toxoid and Vaccine into Muscle, Percutaneous Approach (ICD-10-PCS; principal; 2020-06-01)
DX: O77.0 Labor and delivery complicated by meconium in amniotic fluid (principal); Z37.0 Single live birth; O36.8330 Maternal care for abnormalities of the fetal heart rate or rhythm, third trimester, not applicable or unspecified; Z3A.40 40 weeks gestation of pregnancy; Z23 Encounter for immunization; O48.0 Post-term pregnancy; Z87.891 Personal history of nicotine dependence; O99.62 Diseases of the digestive system complicating childbirth; O99.214 Obesity complicating childbirth; E66.9 Obesity, unspecified; K21.9 Gastro-esophageal reflux disease without esophagitis; Z20.828 Contact with and (suspected) exposure to other viral communicable diseases
CPT/HCPCS: 36415; 59025; 59200; 85014; 85018; 85027; 86592; 86850; 86900; 86901; 90715; G0378; A6250; J1050; J2590; J3010; J3490; J7120; U0003-CS